=== PATIENT | male | born 1985 | race Caucasian/White ===

== ENCOUNTER 2025-02-07 05:53 | Emergency (ER) | payer BC ==
[~2025-02-07] VITALS: Ht 188 cm; Wt 117.9 kg
[2025-02-07] MEDS ORDERED: KETOROLAC TROMETHAMINE 15 MG/ML VIAL ONE (06:37)
[2025-02-07] MEDS ORDERED: ONDANSETRON HCL/PF 4 MG/2 ML VIAL ONE (06:37)
[2025-02-07] MEDS: KETOROLAC TROMETHAMINE 15 MG/ML VIAL IV ONE (06:38)
[2025-02-07] MEDS: IV NS 0.9% 1,000 ML BAG IV ONE ×2 (06:38→07:45)
[2025-02-07] MEDS: ONDANSETRON HCL/PF 4 MG/2 ML VIAL IVP ONE (06:38)
[2025-02-07 06:49] LABS: PLATELET COUNT (AUTO) 247 K/uL (150-450); RED BLOOD CELL COUNT(AUTO) 5.20 MIL/uL (4.5-6.0); RED CELL DISTRIBUTION WIDTH 13.2 % (11.5-15.0); WHITE BLOOD COUNT (AUTO) 14.1 K/uL (4.3-11.0)
[2025-02-07 06:54] LABS: CALCIUM, SERUM 8.7 mg/dL (8.5-10.1); CREATININE 0.9 mg/dL (0.6-1.3); SODIUM SERUM 138 mmol/L (136-145); UREA NITROGEN, BLOOD 12 mg/dL (7-18)
[2025-02-07 07:11] LABS: ASPARTATE AMINOTRANSFERASE 14 U/L (15-37); TOTAL PROTEIN, SERUM 7.6 g/dL (6.4-8.2)
[2025-02-07 08:02] VITALS: BP 146/89; TEMP 98.5; O2SAT 88
== END 2025-02-07 08:02 | disposition home or self-care (01) ==
LOC: ER 05:59
DX: K85.90 Acute pancreatitis without necrosis or infection, unspecified (principal); Z60.2 Problems related to living alone
CPT/HCPCS: 99284; 96374; 96361; 96375; 85025; 80048; 83690; 80076; 36415; J1885; J2405; J7030